=== PATIENT | male | born 1990 | race Caucasian/White ===

== ENCOUNTER 2018-09-19 11:27 | Emergency (ER) | payer BC ==
[~2018-09-19] VITALS: Ht 185.4 cm; Wt 95.3 kg
[2018-09-19 11:35] VITALS: BP_SYST 146
[2018-09-19 12:21] VITALS: BP_SYST 146
== END 2018-09-19 12:23 | disposition home or self-care (01) ==
LOC: SED 11:27
DX: L05.91 Pilonidal cyst without abscess (principal); R03.0 Elevated blood-pressure reading, without diagnosis of hypertension
CPT/HCPCS: 99283